=== PATIENT | male | born 2005 | race Caucasian/White ===

== ENCOUNTER 2024-01-31 07:01 | Emergency (ER) | payer OTHER ==
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
[2024-01-31] MEDS: SODIUM CHLORIDE 0.9% 1,000 ML IV STA (07:52)
[2024-01-31 08:06] LABS: Basophils % (A) 1 %; Eosinophils % (A) 1 %; HCT 50.5 % (39.0-53.0); HGB 16.7 gm/dL (13.0-17.5); Lymphocytes # (A) 1.3 k/uL (1.0-4.8); Lymphocytes % (A) 18 %; MCH 30.4 pg (25.0-35.0); Mean Platelet Volume 7.5; Monocytes # (A) 0.3 k/uL (0-1.0); Monocytes % (A) 5 %; Neutrophils # (A) 5.5 k/uL (1.3-7.7); Neutrophils % (A) 75 %; Platelet Count 260 k/uL (150-450); RBC 5.49 m/uL (4.30-5.90); RDW 12.9 % (11.5-15.5); WBC 7.3 k/uL (4.0-11.0)
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
[2024-01-31 08:14] LABS: Partial Thromboplastin Time 24.4 sec (22.0-30.0); Prothrombin Time 11.3 sec (10.0-12.5)
[2024-01-31 08:19] LABS: ALT 34 U/L (4-49); AST 39 U/L (17-59); African American GFR (CKD) >90 (>60 ml/min/1.73 sqM); Albumin 5.3 g/dL (3.5-5.0); Alkaline Phosphatase 67 U/L (38-126); Anion Gap 17 mmol/L; Blood Urea Nitrogen 15 mg/dL (9-20); Calcium 10.1 mg/dL (8.4-10.2); Carbon Dioxide 21 mmol/L (22-30); Chloride 104 mmol/L (98-107); Glucose 89 mg/dL (74-99); Non-African American GFR(CKD) >90 (>60 ml/min/1.73 sqM); Potassium 3.9 mmol/L (3.5-5.1); Sodium 142 mmol/L (137-145); Total Bilirubin 1.9 mg/dL (0.2-1.3); Total Protein 8.5 g/dL (6.3-8.2)
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
[2024-01-31 08:32] LABS: Alcohol 120 mg/dL
[2024-01-31 08:44] LABS: Amphetamine Screen,Urine Not Detected (NotDetected); Barbiturate Screen,Urine Not Detected (NotDetected); Benzodiazepines Screen,Urine Not Detected (NotDetected); Cocaine Screen,Urine Not Detected (NotDetected); Methadone Screen, Urine Not Detected (NotDetected); Opiate Screen,Urine Not Detected (NotDetected); Oxycodone Screen, Urine Not Detected (NotDetected); Phencyclidine Screen,Urine Not Detected (NotDetected); Tricyclic Antidepressant,Urine Not Detected (NotDetected); Urn Cannabinoid Scrn Detected (NotDetected)
[2024-01-31 09:26] VITALS: BP 145/90; PULSE 75; RESP 18; TEMP 98.1
== END 2024-01-31 09:23 | disposition home or self-care (01) ==
LOC: EC 07:01
DX: S80.02XA Contusion of left knee, initial encounter (principal); S80.01XA Contusion of right knee, initial encounter; F10.129 Alcohol abuse with intoxication, unspecified; J45.909 Unspecified asthma, uncomplicated; F17.200 Nicotine dependence, unspecified, uncomplicated; Y90.6 Blood alcohol level of 120-199 mg/100 ml; V89.2XXA Person injured in unspecified motor-vehicle accident, traffic, initial encounter; Y92.410 Unspecified street and highway as the place of occurrence of the external cause
CPT/HCPCS: 36415; 70450; 71045; 72125; 72170; 80053; 80306; 80320; 85025; 85610; 85730; 86850; 86900; 86901; 93005; 96360; 99285